=== PATIENT | female | born 1955 | race Caucasian/White ===

== ENCOUNTER 2021-05-19 08:44 | Emergency (ER) | payer MEDICARE, SELFPAY ==
--- NOTE | 2021-05-19 08:47 | ED.SKABFB ---
HPI - Skin/Abscess/Foreign Bdy General Chief complaint: Skin/Abscess/Foreign Body Stated complaint: Rash around right Eye and right side of Neck Time Seen by Provider: 05/19/21 08:47 Source: patient and RN notes reviewed History of Present Illness HPI narrative: Patient is a 65-year-old female who presents the urgent care with complaints of rash near the right eye and to the right neck. Patient states that she noticed it on Tuesday after doing a lot of mowing and weeding. Patient states it is very itchy. Denies of any vision changes or trauma to the eye. States that she has been using some antiitch cream without much relief. No other acute complaints. No acute distress noted. Patient aware of the plan of care. Some parts of this dictation were generated by voice recognition software and may contain typographical and/or grammatical inaccuracies. Related Data Home Medications Medication Instructions Recorded Confirmed fluticasone propionate [Flonase 2 spray INTRANASAL DAILY 05/19/21 05/19/21 Allergy Relief] Allergies Allergy/AdvReac Type Severity Reaction Status Date / Time No Known Allergies Allergy Verified 05/19/21 09:03 Review of Systems Review of Systems: CONSTITUTIONAL: Denies fever, chills, or sweats. EYES: Denies visual changes, redness, or discharge. ENT: Denies rhinorrhea, congestion, sore throat, or otalgia. CARDIOVASCULAR: Denies chest pain, palpitations, or edema. RESPIRATORY: Denies cough or dyspnea. GASTROINTESTINAL: Denies abdominal pain, nausea, vomiting, or diarrhea. GENITOURINARY: Denies dysuria or hematuria. SKIN: Reports of an itchy red rash to the right neck and the other right eye MUSCULOSKELETAL: Denies back pain, joint pain, or myalgia. NEUROLOGIC: Denies headache, numbness, or weakness. All other systems reviewed are negative, except as documented in HPI. PMFSH Comments At the time of my signature, I reviewed and agree with the nursing past medical, surgical, social, and family history. There is no relevant family history pertinent to the patient complaint. Exam Narrative: GENERAL: This is a well-nourished, well-developed patient, in no apparent distress. HEAD: normocephalic, atraumatic. EYES: PERRL. Sclera clear/white. Vision is grossly intact. EARS: External ears normal NOSE: External nose normal with no obvious nasal discharge, nares without redness, no rhinorrhea. THROAT: Mucous membranes moist NECK: Neck supple CARDIOVASCULAR: Regular rate and rhythm without murmurs, gallops, or rubs. RESPIRATORY: Clear to auscultation. Breath sounds equal bilaterally. No wheezes, rales, or rhonchi. SKIN: Erythemic dermatitis noted to the right neck and under the right eye NEURO: awake, alert, and oriented to person, place and time. There were no obvious focal neurologic abnormalities. EXTREMITIES: No clubbing, cyanosis, or edema. Course Vital Signs Vital signs: Vital Signs Temperature 97.9 F 05/19/21 08:58 Pulse Rate 84 05/19/21 08:58 Respiratory Rate 20 05/19/21 08:58 Blood Pressure 154/87 H 05/19/21 08:58 Pulse Oximetry 100 05/19/21 08:58 Temperature 97.9 F 05/19/21 09:04 Pulse Rate 84 05/19/21 09:04 Respiratory Rate 20 05/19/21 09:04 Blood Pressure 154/87 H 05/19/21 09:04 Pulse Oximetry 100 05/19/21 09:04 Reviewed-patient is informed that they may have pre-hypertension or hypertension based on a blood pressure reading in the department. I recommend the patient call the primary care provider listed on their discharge instructions or a physician of their choice this week to arrange follow-up for further evaluation of possible pre-hypertension or hypertension. MDM - Skin/Abscess/Foreign Bdy MDM Narrative Medical decision making narrative: Advised the patient take an [id number] antihistamine prior to bedtime such as Benadryl. May use a daily antihistamine during the day such as Zyrtec or Claritin. Complete steroid regimen as prescribed. Be carefu
[2021-05-19 08:58] VITALS: BP 154/87; PULSE 84; RESP 20; TEMP 36.6; O2SAT 100
[2021-05-19 09:04] VITALS: BP 154/87; PULSE 84; RESP 20; TEMP 36.6; O2SAT 100
== END 2021-05-19 09:11 | disposition home or self-care (01) ==
PROVIDERS: Emergency Provider Nurse Practitioner Family; PCP Family Medicine
DX: L25.9 Unspecified contact dermatitis, unspecified cause (principal)
CPT/HCPCS: 99213; G0463